=== PATIENT | female | born 1955 | race African-American/Black ===

== ENCOUNTER 2016-10-13 18:21 | Emergency (ER) | payer MEDICARE, MEDICAID ==
[~2016-10-13 18:21] MED LIST: BENZ1TAB7; VALP250C; ZIPR20CA2
== END 2016-10-14 01:23 | disposition left against medical advice (07) ==
LOC: ER 18:21
DX: R07.9 Chest pain, unspecified (principal); Z53.21 Procedure and treatment not carried out due to patient leaving prior to being seen by health care provider

== ENCOUNTER → 2017-03-13 | Outpatient (CLI) | payer MEDICARE, MEDICAID ==
[~2017-03-13] MED LIST changes: +BARIUM SULFATE 450ML ORAL SUSP ONE
== END | disposition home or self-care (01) ==
LOC: CT 10:18
PROVIDERS: ATTEND Internal Medicine Gastroenterology
DX: K57.30 Diverticulosis of large intestine without perforation or abscess without bleeding (principal); L92.8 Other granulomatous disorders of the skin and subcutaneous tissue; K29.70 Gastritis, unspecified, without bleeding
CPT/HCPCS: 74176

== ENCOUNTER 2018-01-23 18:11 | Emergency (ER) | payer MEDICARE, MEDICAID ==
[~2018-01-23] VITALS: Ht 167.6 cm; Wt 100.0 kg
[~2018-01-23 18:11] MED LIST changes: -BARIUM SULFATE 450ML ORAL SUSP ONE
[2018-01-23 19:41] LABS: CHLORIDE 102 mEq/L (98-107)
[2018-01-23 19:44] LABS: BASOPHILS % 0.4 % (0.0-2.0); EOSINOPHILS % 0.8 % (0.0-5.0); HEMATOCRIT. 37.6 % (36.0-48.0); HEMOGLOBIN. 12.4 g/dL (12.0-16.0); LYMPHOCYTES % 26.7 % (20.0-50.0); MEAN CORPUSCULAR HEMOGLOBIN 27.3 pg (28.0-32.0); MEAN PLATELET VOLUME 8.6 fl (7.4-10.4); MONOCYTES % 14.2 % (2.0-8.0); NEUTROPHILS % 57.9 % (40.0-76.0); PLATELET 248 x1000/uL (130-400); RED BLOOD CELL COUNT 4.53 mill/uL (4.2-5.4); RED CELL DISTRIBUTION WIDTH 16.9 % (11.6-14.6)
[2018-01-23 19:47] LABS: INR 1.1; PROTHROMBIN TIME 11.4 sec (9.1-11.1)
[2018-01-23 23:17] VITALS: BP 154/88
== END 2018-01-24 00:20 | disposition home or self-care (01) ==
LOC: ER 18:35
DX: R07.89 Other chest pain (principal); F31.9 Bipolar disorder, unspecified; M54.30 Sciatica, unspecified side; F17.200 Nicotine dependence, unspecified, uncomplicated
CPT/HCPCS: 36415; 71045; 80053; 80165; 83880; 84484; 85025; 85610; 93005; 99285

== ENCOUNTER 2019-07-07 10:51 | Emergency (ER) | payer MEDICARE, MEDICAID ==
[~2019-07-07] VITALS: Ht 170.2 cm; Wt 73.0 kg
[2019-07-07] MEDS ORDERED: KETOROLAC 60MG/2ML VIAL IM STA (11:13)
[2019-07-07 12:01] LABS: BASOPHILS % 0.8 % (0.0-2.0); EOSINOPHILS % 3.9 % (0.0-5.0); HEMATOCRIT. 42.6 % (36.0-48.0); HEMOGLOBIN. 13.7 g/dL (12.0-16.0); MEAN CORPUSCULAR HEMOGLOBIN 26.4 pg (28.0-32.0); MEAN CORPUSCULAR VOLUME 81.8 fL (81.0-99.0); MEAN PLATELET VOLUME 8.6 fl (7.4-10.4); MONOCYTES % 13.6 % (2.0-8.0); NEUTROPHILS % 55.7 % (40.0-76.0); PLATELET 231 x1000/uL (130-400); RED BLOOD CELL COUNT 5.21 mill/uL (4.2-5.4); RED CELL DISTRIBUTION WIDTH 15.2 % (11.6-14.6)
[2019-07-07 12:09] LABS: CHLORIDE 106 mEq/L (98-107)
[2019-07-07 12:15] LABS: ETHANOL BLOOD < 10 mg/dL
[2019-07-07 17:00] VITALS: BP 129/61
== END 2019-07-07 17:00 | disposition home or self-care (01) ==
LOC: ER 11:01
DX: R07.89 Other chest pain (principal); G40.909 Epilepsy, unspecified, not intractable, without status epilepticus; F31.9 Bipolar disorder, unspecified; M54.30 Sciatica, unspecified side
CPT/HCPCS: 36415; 71045; 80053; 80320; 83880; 84484; 85025; 93005; 96372; 99284; J1885; G0480

== ENCOUNTER 2025-02-09 11:03 | Emergency (ER) | payer BC, MEDICAID ==
[~2025-02-09] VITALS: Ht 172.7 cm; Wt 69.0 kg
[~2025-02-09 11:03] MED LIST changes: -BENZ1TAB7; +BENZ1TAB79
[2025-02-09 11:06] VITALS: O2SAT 98
[2025-02-09 11:35] LABS: BASOPHILS % 0.4 % (0.0-2.0); EOSINOPHILS % 1.6 % (0.0-5.0); HEMATOCRIT. 32.0 % (36.0-48.0); HEMOGLOBIN. 10.6 g/dL (12.0-16.0); LYMPHOCYTES % 18.4 % (20.0-50.0); MEAN PLATELET VOLUME 7.4 fl (7.4-10.4); MONOCYTES % 12.8 % (2.0-8.0); NEUTROPHILS % 66.8 % (40.0-76.0); PLATELET 234 x1000/uL (130-400); RED BLOOD CELL COUNT 4.19 mill/uL (4.2-5.4); RED CELL DISTRIBUTION WIDTH 17.3 % (11.6-14.6)
[2025-02-09 11:48] LABS: CREATININE 0.8 mg/dL (0.6-1.0)
[2025-02-09 11:49] LABS: ETHANOL BLOOD < 10 mg/dL (<10); UREA NITROGEN BLOOD 21 mg/dL (9-23)
[2025-02-09 11:50] LABS: ASPARTATE AMINOTRANSFERASE 16 IU/L (<34)
[2025-02-09 11:51] LABS: BILIRUBIN DIRECT < 0.1 mg/dL (<=3.0); BILIRUBIN TOTAL 0.4 mg/dL (0.1-1.0); PROTEIN TOTAL 6.9 g/dL (6.0-8.3)
[2025-02-09 15:38] LABS: *AMPHETAMINES SCREEN URINE NEGATIVE (NEGATIVE); *BARBITURATES SCREEN URINE NEGATIVE (NEGATIVE); *BENZODIAZEPINES SCREEN URINE NEGATIVE (NEGATIVE); *COCAINE SCREEN URINE PRESUMPTIVE POSITIVE (NEGATIVE); CANNABINOID URINE SCREEN PRESUMPTIVE POSITIVE (NEGATIVE); ECSTASY MDMA SCREEN URINE NEGATIVE (NEGATIVE); METHADONE URINE SCREEN NEGATIVE (NEGATIVE); OPIATES URINE SCREEN NEGATIVE (NEGATIVE); PHENCYCLIDINE URINE SCREEN NEGATIVE (NEGATIVE)
[2025-02-09 18:40] VITALS: BP 91/51; PULSE 65; RESP 15; TEMP 36.8; O2SAT 95
== END 2025-02-09 18:55 | disposition home or self-care (01) ==
LOC: ER 11:03
DX: R46.2 Strange and inexplicable behavior (principal); I49.9 Cardiac arrhythmia, unspecified; G40.909 Epilepsy, unspecified, not intractable, without status epilepticus; Z59.00 Homelessness unspecified; Z20.822 Contact with and (suspected) exposure to COVID-19; Z86.59 Personal history of other mental and behavioral disorders
CPT/HCPCS: 36415; 80048; 80076; 80305; 80320; 85025; 87426; 93005; 99285; G0480

== ENCOUNTER 2025-04-29 09:54 | Emergency (ER) | payer MEDICARE, MEDICAID ==
[~2025-04-29] VITALS: Ht 170.2 cm; Wt 80.0 kg
[2025-04-29 10:02] VITALS: RESP 18; TEMP 98.6; O2SAT 98
[2025-04-29 11:16] LABS: BASOPHILS % 0.5 % (0.0-2.0); EOSINOPHILS % 0.9 % (0.0-5.0); HEMATOCRIT. 38.0 % (36.0-48.0); HEMOGLOBIN. 12.2 g/dL (12.0-16.0); LYMPHOCYTES % 18.4 % (20.0-50.0); MEAN PLATELET VOLUME 7.6 fl (7.4-10.4); MONOCYTES % 9.9 % (2.0-8.0); NEUTROPHILS % 70.3 % (40.0-76.0); PLATELET 272 x1000/uL (130-400); RED BLOOD CELL COUNT 4.87 mill/uL (4.2-5.4); RED CELL DISTRIBUTION WIDTH 16.9 % (11.6-14.6)
[2025-04-29 11:20] LABS: CREATININE 1.0 mg/dL (0.6-1.0)
[2025-04-29 11:21] LABS: ETHANOL BLOOD < 10 mg/dL (<10); UREA NITROGEN BLOOD 9 mg/dL (9-23)
[2025-04-29 11:22] LABS: ASPARTATE AMINOTRANSFERASE 16 IU/L (<34)
[2025-04-29 11:23] LABS: BILIRUBIN DIRECT 0.2 mg/dL (<=3.0); BILIRUBIN TOTAL 0.6 mg/dL (0.1-1.0); PROTEIN TOTAL 7.6 g/dL (6.0-8.3)
[2025-04-29 11:26] LABS: HCG SCREEN NEGATIVE
[2025-04-29 12:26] LABS: *AMPHETAMINES SCREEN URINE PRESUMPTIVE POSITIVE (NEGATIVE)
[2025-04-29 12:27] LABS: *BARBITURATES SCREEN URINE NEGATIVE (NEGATIVE); *BENZODIAZEPINES SCREEN URINE NEGATIVE (NEGATIVE); *COCAINE SCREEN URINE PRESUMPTIVE POSITIVE (NEGATIVE); CANNABINOID URINE SCREEN PRESUMPTIVE POSITIVE (NEGATIVE); ECSTASY MDMA SCREEN URINE NEGATIVE (NEGATIVE); METHADONE URINE SCREEN NEGATIVE (NEGATIVE); OPIATES URINE SCREEN NEGATIVE (NEGATIVE); PHENCYCLIDINE URINE SCREEN NEGATIVE (NEGATIVE)
[2025-04-29 15:36] VITALS: BP 152/83; PULSE 83; O2SAT 99
== END 2025-04-29 15:40 | disposition home or self-care (01) ==
LOC: ER 09:54
DX: R10.84 Generalized abdominal pain (principal); F31.9 Bipolar disorder, unspecified; I10 Essential (primary) hypertension; F20.9 Schizophrenia, unspecified; F10.90 Alcohol use, unspecified, uncomplicated; F12.90 Cannabis use, unspecified, uncomplicated; F15.90 Other stimulant use, unspecified, uncomplicated; F11.90 Opioid use, unspecified, uncomplicated; Z20.822 Contact with and (suspected) exposure to COVID-19; F14.90 Cocaine use, unspecified, uncomplicated; Z79.899 Other long term (current) drug therapy; Y90.9 Presence of alcohol in blood, level not specified
CPT/HCPCS: 36415; 74176; 80048; 80076; 80305; 80320; 84703; 85025; 87426; 99284; G0480

== ENCOUNTER 2025-05-04 17:25 | Inpatient (IN) | payer MEDICARE, MEDICAID ==
[~2025-05-04] VITALS: Ht 172.7 cm; Wt 88.5 kg
[2025-05-04 17:34] VITALS: O2SAT 98
[2025-05-04] MEDS: BACITRACIN ZINC OINT UDPKT TOP ONE (23:08)
[2025-05-04] MEDS: LIDOCAINE 5% PATCH TOP STA (23:09)
[2025-05-04] MEDS: IBUPROFEN 600MG TABLET PO ONE (23:09)
[2025-05-04 23:11] LABS: BASOPHILS % 1.0 % (0.0-2.0); EOSINOPHILS % 3.5 % (0.0-5.0); HEMATOCRIT. 35.6 % (36.0-48.0); HEMOGLOBIN. 11.3 g/dL (12.0-16.0); LYMPHOCYTES % 30.9 % (20.0-50.0); MEAN PLATELET VOLUME 7.7 fl (7.4-10.4); MONOCYTES % 13.0 % (2.0-8.0); NEUTROPHILS % 51.6 % (40.0-76.0); PLATELET 273 x1000/uL (130-400); RED BLOOD CELL COUNT 4.55 mill/uL (4.2-5.4); RED CELL DISTRIBUTION WIDTH 17.2 % (11.6-14.6)
[2025-05-04 23:16] LABS: CLARITY URINE CLEAR (CLEAR); COLOR URINE YELLOW (YELLOW); GLUCOSE URINE NEGATIVE (NEGATIVE); KETONES URINE TRACE (NEGATIVE); LEUKOCYTE ESTERASE URINE NEGATIVE (NEGATIVE); NITRITE URINE NEGATIVE (NEGATIVE); OCCULT BLOOD URINE NEGATIVE (NEGATIVE); PH URINE 5.5 (4.5-8.0); PROTEIN URINE TRACE (NEGATIVE); SPECIFIC GRAVITY URINE 1.033 (1.005-1.030); UROBILINOGEN URINE 1.0 E.U./dL (0.2-1.0)
[2025-05-04 23:21] LABS: INR 1.0
[2025-05-04 23:25] LABS: CREATININE 0.8 mg/dL (0.6-1.0)
[2025-05-04 23:26] LABS: TROPONIN I HIGH SENSITIVITY < 4 ng/L (3.0-34); UREA NITROGEN BLOOD 14 mg/dL (9-23)
[2025-05-04 23:27] LABS: ASPARTATE AMINOTRANSFERASE 16 IU/L (<34)
[2025-05-04 23:28] LABS: BILIRUBIN DIRECT 0.1 mg/dL (<=3.0); BILIRUBIN TOTAL 0.4 mg/dL (0.1-1.0); PROTEIN TOTAL 7.8 g/dL (6.0-8.3)
[2025-05-04 23:54] LABS: BACTERIA URINE 1+; RBC URINE NONE SEEN /hpf (0-2); SQUAMOUS EPITHELIAL CELL URINE 2+ /lpf (RARE/1+); WBC URINE 0-2 /hpf (0-2)
[2025-05-05 02:12] VITALS: BP 118/62; PULSE 62; RESP 16; TEMP 36.3068
[2025-05-05 08:00] VITALS: BP 127/76; PULSE 72; RESP 16; TEMP 35.7; O2SAT 95
[2025-05-05] MEDS: ENOXAPARIN 40MG/0.4ML SYR SUBCUT SCH (10:50)
[2025-05-05 12:00] VITALS: BP 131/74; RESP 15; TEMP 36.7; O2SAT 99
[2025-05-05 16:00] VITALS: BP 131/74; RESP 15; TEMP 36.8; O2SAT 99
[2025-05-05 20:00] VITALS: BP 130/67; RESP 16; TEMP 36.8; O2SAT 98
[2025-05-05] MEDS: AMOXICILLIN/POTASSIUM CLAVULANATE 875/125MG TAB PO SCH (20:36)
[2025-05-05] MEDS: SULFAMETHOXAZOLE/TRIMETHOPRIM 800/160MG TABLET PO SCH (20:36)
[2025-05-05] MEDS: HYDROCODONE/ACETAMINOPHEN 10/325MG TABLET PO PRN (20:37)
[2025-05-06] VITALS: BP 125/65; RESP 18; TEMP 36.7; O2SAT 99
[2025-05-06 04:00] VITALS: BP 123/60; PULSE 65; RESP 18; TEMP 36.8; O2SAT 96
[2025-05-06 08:00] VITALS: BP 104/58; PULSE 77; RESP 18; TEMP 36.4; O2SAT 99
[2025-05-06 12:00] VITALS: BP 116/66; PULSE 78; RESP 18; TEMP 36.7; O2SAT 97
== END 2025-05-06 17:17 | disposition left against medical advice (07) | DRG 581 ==
LOC: ER 17:25 → 7EST 05-05 00:42 → EDBEDREQ 05-05 00:47 → EDBEDREQDT 05-05 00:47 → EDBEDREQTM 05-05 00:47
PROVIDERS: ADMIT Internal Medicine; ATTEND Internal Medicine
PROC: 0KBS0ZZ Excision of Right Lower Leg Muscle, Open Approach (ICD-10-PCS; principal; 2025-05-06)
DX: L97.919 Non-pressure chronic ulcer of unspecified part of right lower leg with unspecified severity (principal); E66.9 Obesity, unspecified; F20.9 Schizophrenia, unspecified; G40.909 Epilepsy, unspecified, not intractable, without status epilepticus; I10 Essential (primary) hypertension; F19.10 Other psychoactive substance abuse, uncomplicated; Z53.29 Procedure and treatment not carried out because of patient's decision for other reasons; G89.29 Other chronic pain; F31.9 Bipolar disorder, unspecified; F17.210 Nicotine dependence, cigarettes, uncomplicated; Z68.29 Body mass index [BMI] 29.0-29.9, adult; Z71.51 Drug abuse counseling and surveillance of drug abuser; X58.XXXA Exposure to other specified factors, initial encounter; Y93.89 Activity, other specified; Y92.89 Other specified places as the place of occurrence of the external cause; Y99.8 Other external cause status
CPT/HCPCS: 36415; 71045; 80048; 80076; 81003; 83880; 84484; 85025; 87070; 87077; 87186; 93005; 99285; J1650